=== PATIENT | female | born 1985 | race Caucasian/White ===

== ENCOUNTER 2018-09-17 20:31 | Emergency (ER) | payer BC ==
[2018-09-17 21:33] LABS: APPEARANCE,URINE CLEAR; BILIRUBIN,URINE NEGATIVE (NEGATIVE); COLOR,URINE STRAW; GLUCOSE, URINE NEGATIVE (NEGATIVE); KETONES,URINE 20 mg/dL (NEGATIVE); LEUKOCYTE ESTERASE,URINE NEGATIVE (NEGATIVE); NITRITE,URINE NEGATIVE (NEGATIVE); PROTEIN,URINE NEGATIVE (NEGATIVE); URINE SPECIFIC GRAVITY 1.004; UROBILINOGEN,URINE NEGATIVE mg/dL (<2.0)
[2018-09-17 21:47] LABS: URINE AMPHETAMINES SCREEN NEGATIVE; URINE BARBITURATES SCREEN UNCONFIRMED POSITIVE; URINE BENZODIAZEPINES SCREEN UNCONFIRMED POSITIVE; URINE COCAINE SCREEN NEGATIVE; URINE MARIJUANA (THC) SCREEN UNCONFIRMED POSITIVE; URINE METHADONE SCREEN NEGATIVE; URINE PHENCYCLIDINE SCREEN NEGATIVE
[2018-09-17 22:15] LABS: ABSOLUTE BASOPHILS # (AUTO) 0.1 10^3/uL (0.0-0.2); ABSOLUTE EOSINOPHILS # (AUTO) 0.1 10^3/uL (0.0-0.6); ABSOLUTE LYMPHOCYTES (AUTO) 1.9 10^3/uL (0.5-4.7); ABSOLUTE MONOCYTES (AUTO) 0.4 10^3/uL (0.1-1.4); ABSOLUTE NEUT (AUTO) 4.1 10^3/uL (1.7-8.2); EOSINOPHILS % (AUTO) 0.9 % (0-6); HEMATOCRIT 35.9 % (36.0-47.0); HEMOGLOBIN 12.4 g/dL (12.0-15.5); MEAN CORPUSCULAR HEMOGLOBIN 31.7 pg (27.0-33.4); MEAN CORPUSCULAR HGB CONC 34.4 g/dL (32.0-36.0); MEAN CORPUSCULAR VOLUME 92 fl (80-97); MONOCYTES % (AUTO) 5.5 % (3-13); PLATELET COUNT 221 10^3/uL (150-450); RED CELL DISTRIBUTION WIDTH 14.1 % (11.5-14.0); SEGMENTED NEUTROPHILS % (AUTO) 63.6 % (42-78); TOTAL CELLS COUNTED % (AUTO) 100 %; WHITE BLOOD COUNT 6.5 10^3/uL (4.0-10.5)
[2018-09-17 22:31] LABS: ALANINE AMINOTRANSFERASE 46 U/L (9-52); ALBUMIN 3.4 g/dL (3.5-5.0); ALKALINE PHOSPHATASE 89 U/L (38-126); ANION GAP 12 (5-19); ASPARTATE AMINO TRANSFERASE 51 U/L (14-36); BILIRUBIN,DIRECT 0.3 mg/dL (0.0-0.4); BILIRUBIN,TOTAL 0.5 mg/dL (0.2-1.3); BLOOD UREA NITROGEN 10 mg/dL (7-20); CALCIUM 8.7 mg/dL (8.4-10.2); CARBON DIOXIDE 25 mmol/L (22-30); CHLORIDE 104 mmol/L (98-107); GLUCOSE 86 mg/dL (75-110); POTASSIUM 3.6 mmol/L (3.6-5.0); SALICYLATE 9.9 mg/dL (2.0-20.0); SODIUM 140.5 mmol/L (137-145); TOTAL PROTEIN 5.6 g/dL (6.3-8.2)
[2018-09-17] MEDS ORDERED: ACETAMINOPHEN 325 MG TABLET PO ONE (22:39)
--- NOTE | 2018-09-17 22:41 | ER Document Report ---
ED General - General Chief Complaint: Overdose Stated Complaint: PSYCH PROBLEM Time Seen by Provider: 09/17/18 21:09 Mode of Arrival: Medic Information source: Patient, Relative, [facility], [facility] Records Notes: 32-year-old female with bipolar disorder, generalized anxiety disorder, borderline personality presents via EMS after her found her altered at home. Patient admitted to her that she took 30 mg of Valium and 3 tabs of BuSpar to help her sleep. She denies suicidal ideation but does admit to increased stress at home due to taking care of her elderly grandmother with severe dementia. She states that she has had daily stress and the presence of the grandmother has caused increased tension in the home. Patient admits to cutting her left forearm with a razor blade. She reports tetanus is up-to- date. She does report a history of cutting. She denies any previous suicide attempt. She is st.ates that she was just trying to sleep. Patient is under psychiatric care with Dr. Andrade. Patient's only current complaint is headache. She denies any nausea, vomiting, visual disturbances, chest pain, shortness of breath. - HPI Onset: Just prior to arrival Quality of pain: Achy Severity: Mild Associated symptoms: Headache. denies: Chest pain, Fever, Nausea, Vomiting, Shortness of breath Exacerbated by: Denies Relieved by: Denies Similar symptoms previously: Yes Recently seen / treated by doctor: Yes - Related Data Allergies/Adverse Reactions: shellfish derived Allergy (Verified 09/17/18 20:52) Past Medical History - General Information source: Patient, Relative, [facility], [facility] Records - Social History Smoking Status: Current Every Day Smoker Cigarette use (# per day): Yes - 8 Smoking Education Provided: Yes - Smoking cessation counseling was provided for 4 minutes at the bedside Frequency of alcohol use: None Drug Abuse: None Lives with: Family Family History: Reviewed & Not Pertinent Patient has suicidal ideation: Yes Patient has homicidal ideation: No Renal/ Medical History: Reports: Hx Kidney Stones. Denies: Hx Peritoneal Dialysis Psychiatric Medical History: Reports: Hx Attention Deficit Hyperactivity Disorder, Hx Bipolar Disorder, Hx Borderline Personality Disorder, Hx Depression Review of Systems - Review of Systems Notes: REVIEW OF SYSTEMS: CONSTITUTIONAL : Denies fever, chills, or sweats. Denies recent illness. Denies weight loss, recent hospitalizations. EENT: Denies visual changes, eye pain. Denies sore throat, oral lesions, difficulty swallowing. CARDIOVASCULAR: Denies chest pain. Denies palpitations. Denies lower extremity edema. RESPIRATORY: Denies cough. Denies shortness of breath, wheezing. GASTROINTESTINAL: Denies abdominal pain or distention. Denies nausea, vomiting , or diarrhea. Denies blood in vomitus, stools, or per rectum. Denies black, tarry stools. Denies constipation. GENITOURINARY: Denies difficulty urinating, painful urination, frequency, blood in urine, or vaginal discharge. MUSCULOSKELETAL: Denies back or neck pain or stiffness. Denies joint pain or swelling. SKIN: Denies rash, lesions or sores. HEMATOLOGIC : Denies easy bruising or bleeding. LYMPHATIC: Denies swollen glands. NEUROLOGICAL: Denies confusion or altered mental status. Denies loss of consciousness. Denies dizziness or lightheadedness. Denies weakness or paralysis. Denies problems difficulty with ambulation, slurred speech. Denies sensory loss, numbness, or tingling. Denies seizures. PSYCHIATRIC: Denies, suicidal ideation, or homicidal ideation. Denies visual or auditory hallucinations. Physical Exam - Vital signs Vitals: Temp Pulse Resp BP Pulse Ox 98.2 F 59 L 13 105/66 95 09/17/18 20:44 09/17/18 20:44 09/17/18 20:44 09/17/18 20:44 09/17/18 20:44 - Notes Notes: PHYSICAL EXAMINATION: GENERAL: Well-appearing, well-nourished and in no acute distress. HEAD: Atraumatic, normocephalic. EYES: Pupils equal round and reactive to light, extraocular movements intact, conjunctiva are normal. ENT: Nares patent, oropharynx clear without exudates. Moist mucous membranes. NECK: Normal range of motion, supple without lymphadenopathy LUNGS: Breath sounds clear to auscultation bilaterally and equal. No wheezes rales or rhonchi. HEART: Regular rate and rhythm without murmurs ABDOMEN: Soft, nontender, nondistended abdomen. No guarding, no rebound. No masses appreciated. Female : deferred Musculoskeletal: Normal range of motion, no pitting or edema. No cyanosis. NEUROLOGICAL: Cranial nerves grossly intact. Normal speech, normal gait. Normal sensory, motor exams PSYCH: Tearful, flat affect. Denies suicidal, homicidal ideation. Admits to increased stress and self cutting. SKIN: Multiple superficial linear lacerations to the left forearm. Course - Re-evaluation Re-evalutation: Laboratory 09/17/18 09/17/18 09/17/18 21:20 21:20 22:00 WBC 6.5 RBC 3.90 Hgb 12.4 Hct 35.9 L MCV 92 MCH 31.7 MCHC 34.4 RDW 14.1 H Plt Count 221 Seg Neutrophils % 63.6 Lymphocytes % 29.0 Monocytes % 5.5 Eosinophils % 0.9 Basophils % 1.0 Absolute Neutrophils 4.1 Absolute Lymphocytes 1.9 Absolute Monocytes 0.4 Absolute Eosinophils 0.1 Absolute Basophils 0.1 Serum HCG, Qual Urine Color STRAW Urine Appearance CLEAR Urine pH 6.0 Ur Specific [place] 1.004 Urine Protein NEGATIVE Urine Glucose (UA) NEGATIVE Urine Ketones 20 H Urine Blood NEGATIVE Urine Nitrite NEGATIVE Urine Bilirubin NEGATIVE Urine Urobilinogen NEGATIVE Ur Leukocyte Esterase NEGATIVE Urine WBC (Auto) 0 Urine RBC (Auto) 0 U Hyaline Cast (Auto) 1 Urine Bacteria (Auto) TRACE Squamous Epi Cells Auto 2 Urine Ascorbic Acid NEGATIVE Urine Opiates Screen NEGATIVE Urine Methadone Screen NEGATIVE Ur Barbiturates Screen UNCONFIRMED POSITIVE Ur Phencyclidine Scrn NEGATIVE Ur Amphetamines Screen NEGATIVE U Benzodiazepines Scrn UNCONFIRMED POSITIVE Urine Cocaine Screen NEGATIVE U Marijuana (THC) Screen UNCONFIRMED POSITIVE 09/17/18 22:00 WBC RBC Hgb Hct MCV MCH MCHC RDW Plt Count Seg Neutrophils % Lymphocytes % Monocytes % Eosinophils % Basophils % Absolute Neutrophils Absolute Lymphocytes Absolute Monocytes Absolute Eosinophils Absolute Basophils Serum HCG, Qual NEGATIVE Urine Color Urine Appearance Urine pH Ur Specific [place] Urine Protein Urine Glucose (UA) Urine Ketones Urine Blood Urine Nitrite Urine Bilirubin Urine Urobilinogen Ur Leukocyte Esterase Urine WBC (Auto) Urine RBC (Auto) U Hyaline Cast (Auto) Urine Bacteria (Auto) Squamous Epi Cells Auto Urine Ascorbic Acid Urine Opiates Screen Urine Methadone Screen Ur Barbiturates Screen Ur Phencyclidine Scrn Ur Amphetamines Screen U Benzodiazepines Scrn Urine Cocaine Screen U Marijuana (THC) Screen 09/17/18 22:43 09/17/18 22:43 32-year-old female with depression, anxiety, bipolar disorder, borderline personality disorder presents via EMS from home after her found her altered at home and the patient admitted to taking 3 tabs of 10 mg Valium and 3 tabs of BuSpar unknown milligram. Vital signs stable upon arrival. Patient is afebrile, normotensive and not hypoxic. She is alert and oriented x3. Patient has a normal physical exam. Admits to self cutting, increased stress at home but denies suicidal and subtle ideation. is at the bedside and states that he has not seen his behave in this manner for nearly a decade. He is concerned with her recent cutting. Because of the patient's poor judgment, self -inflicted laceration and complex psychiatric history IVC petition initiated. Poison control contacted and recommend at least 6 hours of observation. CBC is without leukocytosis or anemia. CMP unremarkable. HCG negative. Urine drug screen positive for barbiturates, benzodiazepine, marijuana. Salicylate level 9. Poison control recommends repeat salicylate level in 3 hours. This is pending. Patient will be cleared for psychiatric evaluation and 4 AM. Tylenol administered for headache. 09/17/18 22:46 09/17/18 23:46 - Vital Signs Vital signs: Temp Pulse Resp BP Pulse Ox 98.2 F 59 L 13 105/66 95 09/17/18 20:44 09/17/18 20:44 09/17/18 20:44 09/17/18 20:44 09/17/18 20:44 - Laboratory Result Diagrams: 09/17/18 22:00 09/17/18 22:00 Laboratory results interpreted by me: 09/17/18 09/17/18 09/17/18 21:20 22:00 22:00 Hct 35.9 L RDW 14.1 H AST 51 H Total Protein 5.6 L Albumin 3.4 L Urine Ketones 20 H Acetaminophen < 10 L - EKG Interpretation by Vt EKG shows normal: Sinus rhythm Rate: Normal Rhythm: NSR When compared to previous EKG there are: No significant change Discharge - Discharge Clinical Impression: Self-harming behavior, Superficial laceration, Depression with anxiety Medication overdose Qualifiers: Encounter type: initial encounter Injury intent: undetermined intent Qualified Code(s): T50.904A - Poisoning by unspecified drugs, medicaments and biological substances, undetermined, initial encounter Headache Qualifiers: Headache type: unspecified Headache chronicity pattern: acute headache Intractability: not intractable Qualified Code(s): R51 - Headache Condition: Good
[2018-09-17 22:46] LABS: ACETAMINOPHEN < 10 ug/mL (10-30); ALCOHOL < 10 mg/dL (NONE DETECTED)
[2018-09-18] MEDS ORDERED: NORMAL SALINE 1000 ML 1,000 ML IV ONE (01:02)
[2018-09-18 09:05] VITALS: BP 107/78
--- NOTE | 2018-09-18 10:01 | ER Document Report ---
Doctor's Note Notes: 09/18/18 09:58 Rounds: Chart reviewed and patient interviewed. Patient is awake and alert. Being evaluated for an overdose. She has a history of bipolar disorder and depression and anxiety, but denies suicidal intent. She says that she took 3 Valium 10 mg and 2 BuSpar in order to get some sleep. She cut her left forearm for "release". Denies any intent to kill herself. While here, she had a transient hypotension in the wee hours of the morning. Blood pressures were 74/ 57 and 77/40. She got a liter of saline. Since that time, her systolic blood pressures have been in the range of 103-107. Vital signs were otherwise normal. Patient has minor superficial abrasions to the dorsal aspect of the left mid forearm. Labs are normal except for urine drug screen positive for marijuana, benzodiazepines, and barbiturates. Patient appears to be medically stable for transfer or discharge. Alvin Perera MD
--- NOTE | 2018-09-18 10:23 | EKG REPORT ---
SEVERITY:- NORMAL ECG - SINUS RHYTHM : Confirmed by: Judi Prieto MD 18-Sep-2018 10:22:30
--- NOTE | 2018-09-18 17:02 | PSYCHOLOGICAL NOTE ---
Psych Note - Psych Note Psych Note: Reason for consult: possible overdose Consent for permissions: patient's at bedside Patient states that agreed to chief cook last night so she went to the bedroom to lay down. Patient states that she took 3 Valium, instead of the normal 2 that is prescribed and 2 Buspar to help her sleep. Patient states that she has been experiencing insomnia over the last few weeks. Patient states she doesn't remember anything after that except waking up in the hospital. Patient states that she thinks her daughter found her and notified her and then they brought her to the hospital. Patient denies that she was trying to harm herself only that she thought by taking more medicine that would make her drowsy enough to sleep. Patient disclosed that she also cuts on her left arm from time to time to get a "release" from her stressful life. Patient disclosed that her grandmother is currently living with her but that she plans to admit her to an assisted living facility on Thursday. This clinician did not cuts on the patient's left arm. Patient is currently seeing Dr. Andrade and her next appointment is on Thursday, September 22, 2018. Patient's states that he took her to the hospital as a precautionary measure as he was not sure on how much medication that patient had taken. Patient's states that he will be accompanying the patient to her next appointment on September 22, 2018. Patient's states that he has not noticed any unusual behavior and the patient has not said anything to him to indicate that she was suicidal. Patient is alert and oriented to person, place, time and circumstance. Patient' s mood is euthymic. Eye contact was well maintained and patient was able to engage the clinician in conversation. Patient presented with an organized and linear thought process. Conversational speech was within normal rate, tone and prosody. Intellectual abilities appear to be within the average range. Attention and concentration are good. Insight, judgment and impulse control are fair. No medication recommendations at this time Diagnosis 296.41 (F31.11) Bipolar I Disorder, Mild per patient report 300.02 (F41.1) Generalized Anxiety Disorder per patient report 301.83 (F60.3) Borderline Personality Disorder per patient report Impression/Plan: Patient is recommended to rescind IVC and is cleared from acute psychiatric services. Patient denies suicidal ideation. Patient states that she took 3 valium, instead of 2 which is the prescribed amount in order to get some sleep. Patient states that she has been experiencing insomnia over the last few weeks and was just trying to get some rest. This clinician engaged with client with psycho education on the importance of taking medicine as it is prescribed and patient plans to follow up with her outpatient mental health provider on Thursday, September 22, 2018. Dr. Ardon was consulted on the care and management of this patient; attending physician is in agreement with recommendations and disposition.
== END 2018-09-18 10:51 | disposition home or self-care (01) ==
LOC: ER 20:31
DX: S51.812A Laceration without foreign body of left forearm, initial encounter (principal); T50.904A Poisoning by unspecified drugs, medicaments and biological substances, undetermined, initial encounter; R51 Headache; F32.9 Major depressive disorder, single episode, unspecified; F41.9 Anxiety disorder, unspecified; I95.9 Hypotension, unspecified; X78.8XXA Intentional self-harm by other sharp object, initial encounter; F17.210 Nicotine dependence, cigarettes, uncomplicated
CPT/HCPCS: 93005; 99285; 96360; 36415; 80307 ×4; 84703; 85025; 80053; 81001; 93010; J7030

== ENCOUNTER 2020-09-19 15:17 | Emergency (ER) | payer BC ==
--- NOTE | 2020-09-19 16:37 | ER Document Report ---
ED Medical Screen (RME) - General Chief Complaint: Suicidal Ideation Stated Complaint: SUICIDAL IDEATION Time Seen by Provider: 09/19/20 16:32 Primary Care Provider: FABBY VINCENT II, PA-C [Primary Care Provider] - Follow up as needed Mode of Arrival: Ambulatory Information source: Patient Notes: 34-year-old female presents to ED for complaint of extreme anxiety and depression. She states she is going through a divorce and she cannot get any of her medications because she does not have the money to pay for them and her family will not help her because they do not want her to be on the medicines. She states she took all the medicines that she had left but her daughter and her parents will not help her to buy more medicine. She states her 17-year-old daughter brought her but they think she needs to be admitted and to be treated without medicine. She states she does have a history of borderline personality disorder bipolar general anxiety disorder and PTSD. She states she does smoke a half a pack a day does not drink alcohol and did use meth a month ago trying to help with her anxiety but it just made things worse. Patient states she did tell her daughter last night that she would be better off but she does not plan on hurting herself or anyone else. I have done the vitals they are in the chart but I cannot chart them in the computer as they would not capture on the machine. After performing a Medical Screening Examination, I spoke with the patient at length in regards to leaving the hospital against medical advice. I do not bel ieve the patient should leave but the patient is alert oriented x4, understands the risks and benefits of staying and leaving including disability and . Pt understands that he can return at any time for further care and is more than welcome to do so. Pt verbalizes this understanding. - Related Data Allergies/Adverse Reactions: shellfish derived Allergy (Verified 09/17/18 20:52) Past Medical History Renal/ Medical History: Reports: Hx Kidney Stones. Denies: Hx Peritoneal Dialysis Psychiatric Medical History: Reports: Hx Attention Deficit Hyperactivity Disorder, Hx Bipolar Disorder, Hx Borderline Personality Disorder, Hx Depression Doctor's Discharge - Discharge Referrals: FABBY VINCENT II, PA-C [Primary Care Provider] - Follow up as needed
[2020-09-19] MEDS ORDERED: CHLORPROMAZINE HCL 25 MG TABLET PO ONE (17:31)
[2020-09-19] MEDS ORDERED: BENZTROPINE MESYLATE 1 MG TABLET PO ONE (17:31)
[2020-09-19] MEDS ORDERED: OLANZAPINE 5 MG TABLET PO ONE (17:31)
--- NOTE | 2020-09-19 17:37 | ER Document Report ---
ED General - General Chief Complaint: Suicidal Ideation Stated Complaint: SUICIDAL IDEATION Time Seen by Provider: 09/19/20 16:32 Primary Care Provider: FABBY VINCENT II, PA-C [NO LOCAL MD] - Follow up as needed Mode of Arrival: Ambulatory - HPI Notes: Patient is a 34-year-old female who presents to the emergency department for evaluation. She has a history of bipolar disorder, PTSD, generalized anxiety disorder, personality disorder. She states that she was on medications for some time. She states that her family thought she was "on too much" so she was stopped on them about a week ago. She was on rather high doses of Geodon, as well as other antidepressants, Minipress, and Valium. Last night evidently the patient told her daughter that she wished she was not alive anymore. The patient denies any suicidal or homicidal ideation at this time. She denies any history of suicide attempt. She has been hospitalized in the past, states it was a few years ago. She is not currently seeing a therapist or psychiatrist of any sort. She denies any visual or auditory hallucinations. She states she has been eating and drinking. She denies any pain at this time. - Related Data Allergies/Adverse Reactions: shellfish derived Allergy (Verified 09/19/20 16:57) Past Medical History - General Information source: Patient - Social History Smoking Status: Current Every Day Smoker Frequency of alcohol use: None Drug Abuse: Other - Admits to trying methamphetamine to help with her anxiety Family History: Reviewed & Not Pertinent Renal/ Medical History: Reports: Hx Kidney Stones. Denies: Hx Peritoneal Dialysis Psychiatric Medical History: Reports: Hx Attention Deficit Hyperactivity Disor nitesh, Hx Bipolar Disorder, Hx Borderline Personality Disorder, Hx Depression Past Surgical History: Reports: Other - ESWL Review of Systems - Review of Systems Constitutional: No symptoms reported EENT: No symptoms reported Cardiovascular: No symptoms reported Respiratory: No symptoms reported Gastrointestinal: No symptoms reported Genitourinary: No symptoms reported Musculoskeletal: No symptoms reported Skin: No symptoms reported Neurological/Psychological: See HPI -: Yes All other systems reviewed and negative Physical Exam - Vital signs Vitals: Temp Pulse Resp BP Pulse Ox 98.2 F 80 20 115/73 98 09/19/20 16:40 09/19/20 16:40 09/19/20 16:40 09/19/20 16:40 09/19/20 16:40 - Notes Notes: Is a very pleasant 34-year-old female who appears her stated age. She has diminished eye contact, flat and depressed affect. She becomes slightly agitate d during interview, then tearful. Good hygiene. Vital signs reviewed, please refer to chart. Head is normocephalic, atraumatic. Pupils equal round, reactive to light. Neck is supple without meningismus. Heart is regular rate and rhythm. Lungs are clear to auscultation bilaterally. Abdomen is soft, nontender, normoactive bowel sounds throughout. Extremities without cyanosis, clubbing. Skin is warm and dry. Patient is awake, alert, neurological exam is nonfocal. Course - Re-evaluation Re-evalutation: 09/19/20 17:36 Patient presents to the emergency department for evaluation. She was seen by the psychosocial team. The patient at this time, does not meet any criteria for acute hospitalization. She denies any active suicidal thoughts. She is, however, coming off of significant dosages of psychiatric medications. Medications ordered as recommended by psychosocial team. Patient was amenable to staying here in the emergency department to see how she responded to these medications. If no adverse effects are noted, the patient will be sent home with a prescription for Zyprexa and Cogentin. She will follow up closely as an outpatient. 09/19/20 18:04 Patient becoming slightly more agitated. She states she wants to leave. I did consult Dr. Ardon, who came and discussed options again with the patient. She is amenable to waiting for medication here. 09/19/20 19:[address] Ardon that we have spoken to family members. Patient has been less than forthcoming in regards to her issues. There are possible substance abuse issues. There are are definitely compliance issues. According to family, the patient is a danger to herself. Hold papers will be filled out by Dr. Ardon. As a result, laboratory investigations are ordered. 09/19/20 22:33 Patient has been stable. She has no acute complaints. Still awaiting urinalysis and tox cream, but otherwise the patient is medically cleared. Order for medications as recommended by the psychosocial team placed. 09/20/20 02:34 Patient has not yet provided urinalysis, but denied any urine symptoms. She is medically cleared. - Vital Signs Vital signs: Temp Pulse Resp BP Pulse Ox 98.2 F 80 20 115/73 98 09/19/20 16:40 09/19/20 16:40 09/19/20 16:40 09/19/20 16:40 09/19/20 16:40 - Laboratory Result Diagrams: 09/19/20 20:01 09/19/20 20:01 Laboratory results interpreted by me: 09/19/20 09/19/20 20:01 20:01 Hct 35.7 L RDW 14.4 H Acetaminophen < 10 L - EKG Interpretation by Me Additional EKG results interpreted by me: 09/19/20 20:08 Sinus mechanism with a rate of 63 bpm. Normal axis and intervals. No acute ST changes concerning for ischemia or infarction. No significant change compared to prior study. Discharge - Discharge Clinical Impression: PTSD (post-traumatic stress disorder) Bipolar disorder Qualifiers: Active/Remission status: remission status unspecified Qualified Code(s): F31.9 - Bipolar disorder, unspecified Condition: Stable Disposition: OTHER Referrals: CARLTON STARK,FABBY Ochoa PA-C [NO LOCAL MD] - Follow up as needed
[2020-09-19 20:16] LABS: ABSOLUTE EOSINOPHILS # (AUTO) 0.1 10^3/uL (0.0-0.6); ABSOLUTE LYMPHOCYTES (AUTO) 2.3 10^3/uL (0.5-4.7); ABSOLUTE MONOCYTES (AUTO) 0.4 10^3/uL (0.1-1.4); ABSOLUTE NEUT (AUTO) 3.2 10^3/uL (1.7-8.2); BASOPHILS % (AUTO) 0.4 % (0-2); HEMATOCRIT 35.7 % (36.0-47.0); HEMOGLOBIN 12.6 g/dL (12.0-15.5); LYMPHOCYTES % (AUTO) 38.3 % (13-45); MEAN CORPUSCULAR HEMOGLOBIN 31.7 pg (27.0-33.4); MEAN CORPUSCULAR HGB CONC 35.4 g/dL (32.0-36.0); MEAN CORPUSCULAR VOLUME 90 fl (80-97); MONOCYTES % (AUTO) 7.2 % (3-13); PLATELET COUNT 358 10^3/uL (150-450); RED BLOOD COUNT 3.99 10^6/uL (3.72-5.28); RED CELL DISTRIBUTION WIDTH 14.4 % (11.5-14.0); SEGMENTED NEUTROPHILS % (AUTO) 52.1 % (42-78); TOTAL CELLS COUNTED % (AUTO) 100 %; WHITE BLOOD COUNT 6.1 10^3/uL (4.0-10.5)
[2020-09-19 20:39] LABS: ALBUMIN 3.9 g/dL (3.5-5.0); ALKALINE PHOSPHATASE 98 U/L (38-126); ANION GAP 9 (5-19); ASPARTATE AMINO TRANSFERASE 27 U/L (14-36); BILIRUBIN,DIRECT 0.1 mg/dL (0.0-0.4); BILIRUBIN,TOTAL 0.4 mg/dL (0.2-1.3); BLOOD UREA NITROGEN 16 mg/dL (7-20); CALCIUM 8.9 mg/dL (8.4-10.2); CARBON DIOXIDE 29 mmol/L (22-30); CHLORIDE 103 mmol/L (98-107); GLUCOSE 81 mg/dL (75-110); POTASSIUM 3.6 mmol/L (3.6-5.0); SALICYLATE 7.3 mg/dL (2.0-20.0); TOTAL PROTEIN 6.5 g/dL (6.3-8.2)
[2020-09-19 20:42] LABS: ACETAMINOPHEN < 10 ug/mL (10-30); ALCOHOL < 10 mg/dL (NONE DETECTED)
[2020-09-19] MEDS ORDERED: CHLORPROMAZINE HCL INJ 25 MG/1 ML AMPULE IM PRN (22:32)
[2020-09-19] MEDS: OLANZAPINE 5 MG TABLET PO SCH (23:07)
[2020-09-20 07:15] LABS: APPEARANCE,URINE CLOUDY; BILIRUBIN,URINE NEGATIVE (NEGATIVE); COLOR,URINE AMBER; GLUCOSE, URINE NEGATIVE (NEGATIVE); KETONES,URINE NEGATIVE (NEGATIVE); LEUKOCYTE ESTERASE,URINE SMALL (NEGATIVE); NITRITE,URINE POSITIVE (NEGATIVE); PROTEIN,URINE 30 mg/dL (NEGATIVE); URINE SPECIFIC GRAVITY 1.027
[2020-09-20 07:27] LABS: URINE BARBITURATES SCREEN NEGATIVE; URINE COCAINE SCREEN NEGATIVE; URINE MARIJUANA (THC) SCREEN NEGATIVE; URINE METHADONE SCREEN NEGATIVE; URINE PHENCYCLIDINE SCREEN NEGATIVE
[2020-09-20 07:29] LABS: URINE BENZODIAZEPINES SCREEN UNCONFIRMED POSITIVE
[2020-09-20] MEDS ORDERED: NITROFURANTOIN MONOHYD/M-CRYST 100 MG CAPSULE PO ONE ×2 (08:06→10:00)
[2020-09-20] MEDS: OLANZAPINE 5 MG TABLET PO SCH ×2 (09:44→21:54)
--- NOTE | 2020-09-20 18:10 | EKG REPORT ---
SEVERITY:- ABNORMAL ECG - SINUS RHYTHM : Confirmed by: Dimitri Roberto MD 20-Sep-2020 18:09:26
--- NOTE | 2020-09-20 18:38 | ER Document Report ---
Doctor's Note Notes: 09/20/20 18:32 Patient's vital signs and previous labs, diagnostic images reviewed. Reviewed mental health notes, nurse's notes and previous providers notes. VSS. Pt is in no distress at this time. Denies any SI or HI. She is being treated for UTI with Macrobid General: A&Ox3. Answers questions appropriately. Heart: RRR Lungs: CTAB Psych: Flat affect A/P: Continue monitoring and rec's per MH. Normal diet will continue to monitor
[2020-09-20] MEDS ORDERED: BENZTROPINE MESYLATE 1 MG TABLET PO SCH (22:00)
[2020-09-21] MEDS: OLANZAPINE 5 MG TABLET PO SCH (11:36)
--- NOTE | 2020-09-21 16:39 | ER Document Report ---
Doctor's Note Notes: 09/21/20 16:39 Patient is resting quietly in the room in no distress at this time. Awaiting psychiatric recommendations
[2020-09-21 17:42] VITALS: BP 110/70
[2020-09-21] MEDS ORDERED: NITROFURANTOIN MONOHYD/M-CRYST 100 MG CAPSULE PO SCH (18:00)
== END 2020-09-21 17:45 | disposition other institution (70) ==
LOC: ER 15:17
DX: F43.10 Post-traumatic stress disorder, unspecified (principal); F31.9 Bipolar disorder, unspecified; N30.01 Acute cystitis with hematuria; R45.851 Suicidal ideations; F41.9 Anxiety disorder, unspecified; F17.200 Nicotine dependence, unspecified, uncomplicated
CPT/HCPCS: 93005; 99285; 36415; 87086; 80307 ×4; 84703; 85025; 87088; 80053; 81001; 87186; 93010; J3490; J8499